=== PATIENT | female | born 1955 | race Caucasian/White ===

== ENCOUNTER → 2017-06-16 | Outpatient (CLI) | payer OTHER ==
[2017-02-24 10:08] VITALS: BMI 18.5
[~2017-06-16] MED LIST: CALC-521 PO; CEFU500T10 PO; CEPH500C24 PO; FAMO20TA28 PO; FURO-45 PO; LEVO-85 PO; LEVO25TA61 PO; LEVO750T27 PO; LIDO5T TP; NITR-105 PO; OXYGENHOME INH; PANT40TA65 PO; PRE5 PO; PRED-1 PO; PRED20TA6 PO; PSYL0.5234 PO; RANI-324 PO; SUCR1ORA13 PO; SUCR1TAB51 PO; [UNRECOGNIZED DRUG - CODE] RC; [UNRECOGNIZED DRUG - CODE] TP
[2017-06-16 15:13] LABS: PLATELET COUNT, AUTOMATED 117 K/uL (150-450)
== END ==
LOC: LAB 13:09
PROVIDERS: ATTEND Internal Medicine
DX: M05.00 Felty's syndrome, unspecified site (principal)
CPT/HCPCS: 36415; 85025

== ENCOUNTER → 2017-07-18 | Outpatient (CLI) | payer OTHER ==
[2017-02-24 10:08] VITALS: BMI 18.5
[~2017-07-18] MED LIST changes: +CYCL10TA29 PO
[2017-07-18 14:01] LABS: PLATELET COUNT, AUTOMATED 125 K/uL (150-450)
== END ==
LOC: LAB 10:39
PROVIDERS: ATTEND Internal Medicine
DX: M05.00 Felty's syndrome, unspecified site (principal)
CPT/HCPCS: 36415; 85025

== ENCOUNTER → 2017-09-19 | Outpatient (CLI) | payer OTHER ==
[2017-02-24 10:08] VITALS: BMI 18.5
[2017-09-19 14:07] LABS: PLATELET COUNT, AUTOMATED 136 K/uL (150-450)
== END ==
LOC: LAB 13:04
PROVIDERS: ATTEND Internal Medicine
DX: M05.00 Felty's syndrome, unspecified site (principal)
CPT/HCPCS: 36415; 85025

== ENCOUNTER → 2017-10-24 | Outpatient (CLI) | payer OTHER ==
[2017-02-24 10:08] VITALS: BMI 18.5
[~2017-10-24] MED LIST changes: -RANI-324 PO; +RANI-366 PO
[2017-10-24 14:28] LABS: PLATELET COUNT, AUTOMATED 80 K/uL (150-450)
== END ==
LOC: LAB 13:38
PROVIDERS: ATTEND Internal Medicine
DX: M05.00 Felty's syndrome, unspecified site (principal)
CPT/HCPCS: 36415; 85025

== ENCOUNTER → 2017-11-28 | Outpatient (CLI) | payer OTHER ==
[2017-02-24 10:08] VITALS: BMI 18.5
[~2017-11-28] MED LIST changes: +ACET500T68 PO; +LIDO15CR8 TOP
[2017-11-28 15:05] LABS: PLATELET COUNT, AUTOMATED 104 K/uL (150-450)
== END ==
LOC: LAB 13:31
PROVIDERS: ATTEND Internal Medicine
DX: M05.00 Felty's syndrome, unspecified site (principal)
CPT/HCPCS: 36415; 85025

== ENCOUNTER 2017-12-25 03:38 | Emergency (ER) | payer OTHER ==
[2017-02-24 10:08] VITALS: Wt 56.8 kg
[~2017-12-25 03:38] MED LIST changes: -CEPH500T7 PO; -TRAM-420 PO
[2017-12-25 03:40] VITALS: BP 105/61
--- NOTE | 2017-12-25 03:40 | ER Report ---
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 Patient was seen by primary care 1 month ago. Approximately with increasing back pain. She is being managed on Tylenol 1000 mg by mouth twice a day and lidocaine patches. She states her pain is not improved. Her pain is worse. She is unable to sleep tonight. Her called 911 and had her brought to the hospital for further evaluation and treatment of her back pain. Patient denies fever, chills , productive cough or shortness of breath. Patient uses a bedpan 4 times a day. She is cared for by MANAGER CREATIVE for several hours during the daytime and then again at bedtime. Patient denies dysuria, frequency or hematuria. Patient was noted to have a decubitus in her left buttock area on her last internal medicine visit. Patient's also taking cyclobenzaprine muscle relaxant, which is not been helping any with the muscle spasms in her back. REVIEW OF SYSTEMS: Respiratory: No cough, no dyspnea. Cardiovascular: No chest pain, no palpitations. Gastrointestinal: No vomiting, no abdominal pain. Musculoskeletal: As above Allergies: Coded Allergies: Methotrexate Analogues (Unverified Allergy, Severe, blisters, 12/25/17) hydroxychloroquine (Unverified Allergy, Unknown, 12/25/17) Uncoded Allergies: DAIRY (Adverse Reaction, Intermediate, 07/19/15) Home Meds Active Scripts Tramadol Hcl (TRAMADOL HCL) 50 Mg Tablet, 1 TAB PO Q6H Y for PAIN, #20 MG TAKE ONE TABLETS BY MOUTH EVERY SIX HOURS NEEDED Prov:ANDREEA DU DO 12/25/17 Cephalexin 500 Mg Tab (KEFLEX 500 MG TAB) 500 Mg Tablet, 500 MG PO TID for infection, #21 TAB Prov:ANDREEA DU DO 12/25/17 Lidocaine (Lidocaine) 5 % Cream..g., 1 LUCILLE TOP BID Y for pain, #1 TUBE 5 Refills Prov:TAVON HAMMOND MD 12/14/17 Cyclobenzaprine Hcl (CYCLOBENZAPRINE HCL) 10 Mg Tablet, 1 TAB PO TID Y for muscle spasm, #15 TAB 0 Refills Prov:TIARRA CABALLERO DNP, MOLDED RUBBER GOODS CUTTER-BC 11/03/17 Prednisone 10 Mg Tab (PREDNISONE 10 MG TAB) 10 Mg Tablet, 1 TAB PO TID, #120 TAB 5 Refills Prov:TAVON HAMMOND MD 10/27/17 Furosemide (FUROSEMIDE) 20 Mg Tablet, 0.5 TAB PO DAILY, #45 TAB 3 Refills Prov:TAVON HAMMOND MD 09/21/17 Pantoprazole Sodium (PANTOPRAZOLE SODIUM) 40 Mg Tablet.dr, 1 TAB PO QHS, #90 TAB 4 Refills Prov:TAVON HAMMOND MD 04/19/17 Levothyroxine Sodium (LEVOTHYROXINE SODIUM) 25 Mcg Tablet, 1 TAB PO QDAY, #90 TAB 3 Refills Prov:TAVON HAMMOND MD 03/29/17 Reported Medications Acetaminophen (TYLENOL EXTRA STRENGTH) 500 Mg Tablet, 2 TAB PO BID 2 tabs po bid routinely, and may add third dose prn pain 11/27/17 Oxygen (OXYGEN) Inha, 2 L INH cont, L 03/07/17 Glycerin (SUPPOSITORY) 1 Each Supp.rect, 1 SUPP.RECT RC DAILY Y for constipation , SUPP.RECT 07/19/15 Calcium Carbonate (TUMS) 300 Mg Tab.chew, 2 TAB PO BID Y for INDIGESTION, TAB.CHEW 07/19/15 Reviewed Nurses Notes: Yes Old Medical Records Reviewed: Yes Hx Smoking: No Smoking Status: Never Smoker Exposure to Second Hand Smoke?: No Hx Substance Use Disorder: No Hx Alcohol Use: No Constitutional Vital Sign - Last 24 Hours 12/25/17 12/25/17 12/25/17 12/25/17 03:39 03:40 03:53 04:23 Temp 98.2 Pulse 113 109 107 Resp 16 B/P (MAP) 105/61 (76) 105/61 Pulse Ox 85 100 92 O2 Delivery Room Air 12/25/17 12/25/17 12/25/17 12/25/17 04:38 04:43 05:13 05:28 Pulse 109 111 96 103 Pulse Ox 94 92 95 97 12/25/17 12/25/17 12/25/17 05:43 05:48 06:03 Pulse 101 96 98 Pulse Ox 98 96 94 Physical Exam General Appearance: The patient is alert, has no immediate need for airway protection and no current signs of toxicity. Vital signs stable, afebrile HEENT Pupils equal and round no injection. Oropharynx with dry mucous membranes Respiratory: Chest is non tender, lungs are clear to auscultation. Cardiac: regular rate and rhythm Gastrointestinal: Abdomen is soft and non tender, no masses, bowel sounds normal. Musculoskeletal: Neck: Neck is supple and non tender. Back is tender to the midthoracic region, mostly paraspinous muscles, Extremities have full range of motion and are non tender. Skin: No rashes or lesions. DIFFERENTIAL DIAGNOSIS: After history and physical exam differential diagnosis was considered for back pain including but not limited to muscular pain, herniated disc, spine fracture, intra-abdominal causes, arthritis and urinary tract infection. Medical Decision Making Data Points Laboratory Hematology Test 12/25/17 05:31 Urine Color Yellow Urine Clarity Cloudy Urine pH 5.0 pH (4.8-9.5) Urine Specific [place] 1.024 Urine Protein Negative mg/dL (NEGATIVE) Urine Glucose (UA) Negative mg/dL (NEGATIVE) Urine Ketones Trace mg/dL (NEGATIVE) Urine Blood Negative (NEGATIVE) Urine Nitrite Negative (NEGATIVE) Urine Bilirubin Negative (NEGATIVE) Urine Urobilinogen Negative mg/dL (0.2-1.9) Urine Leukocyte Esterase Large (NEGATIVE) Urine RBC 10 /HPF (0-2/HPF) Urine WBC 87 /HPF (0-5/HPF) Urine WBC Clumps Many /HPF Urine Squamous Epithelial Cells Many /LPF (NONE-FEW) Urine Transitional Epithelial Cells Many /LPF (NONE-FEW) Urine Bacteria Moderate /HPF (NONE-FEW) Urine Hyaline Casts Few /LPF (NONE-FEW) Urine Mucus Few /HPF (NONE-FEW) Chemistry Test 12/25/17 05:31 Urine Color Yellow Urine Clarity Cloudy Urine pH 5.0 pH (4.8-9.5) Urine Specific [place] 1.024 Urine Protein Negative mg/dL (NEGATIVE) Urine Glucose (UA) Negative mg/dL (NEGATIVE) Urine Ketones Trace mg/dL (NEGATIVE) Urine Blood Negative (NEGATIVE) Urine Nitrite Negative (NEGATIVE) Urine Bilirubin Negative (NEGATIVE) Urine Urobilinogen Negative mg/dL (0.2-1.9) Urine Leukocyte Esterase Large (NEGATIVE) Urine RBC 10 /HPF (0-2/HPF) Urine WBC 87 /HPF (0-5/HPF) Urine WBC Clumps Many /HPF Urine Squamous Epithelial Cells Many /LPF (NONE-FEW) Urine Transitional Epithelial Cells Many /LPF (NONE-FEW) Urine Bacteria Moderate /HPF (NONE-FEW) Urine Hyaline Casts Few /LPF (NONE-FEW) Urine Mucus Few /HPF (NONE-FEW) Urinalysis Test 12/25/17 05:31 Urine Color Yellow Urine Clarity Cloudy Urine pH 5.0 pH (4.8-9.5) Urine Specific [place] 1.024 Urine Protein Negative mg/dL (NEGATIVE) Urine Glucose (UA) Negative mg/dL (NEGATIVE) Urine Ketones Trace mg/dL (NEGATIVE) Urine Blood Negative (NEGATIVE) Urine Nitrite Negative (NEGATIVE) Urine Bilirubin Negative (NEGATIVE) Urine Urobilinogen Negative mg/dL (0.2-1.9) Urine Leukocyte Esterase Large (NEGATIVE) Urine RBC 10 /HPF (0-2/HPF) Urine WBC 87 /HPF (0-5/HPF) Urine WBC Clumps Many /HPF Urine Squamous Epithelial Cells Many /LPF (NONE-FEW) Urine Transitional Epithelial Cells Many /LPF (NONE-FEW) Urine Bacteria Moderate /HPF (NONE-FEW) Urine Hyaline Casts Few /LPF (NONE-FEW) Urine Mucus Few /HPF (NONE-FEW) ED Course/Re-evaluation ED Course Patient was admitted to an examination room. H&P was done. The differential diagnosis was considered. On clinical examination. Patient has back pain. There is pain in the mid to lower thoracic region. There is no CVA tenderness. Diagnostic evaluation is ordered. Nurses are unable to establish a peripheral IV. A blood draw was unsuccessful by numerous staff members. We will check a urinalysis to rule out infection. Patient's back pain will be treated with oral hydrocodone syrup. Patient reports good improvement of her pain with 2.5 mg of hydrocodone Tramadol would be another consideration. Prescription for tramadol provided. She'll be covered with Keflex for urinary tract infection. A urine cultures ordered. Patient needs to follow-up with her primary care provider pain management program. Decision to Disposition Date: Dec 25, 2017 Decision to Disposition Time: 05:28 Depart Departure Latest Vital Signs Vital Signs Date Time Temp Pulse Resp B/P (MAP) Pulse Ox O2 Delivery O2 Flow Rate FiO2 12/25/17 06:03 98 94 12/25/17 03:40 98.2 16 105/61 Room Air Impression: Primary Impression: Bilateral thoracic back pain Additional Impressions: Felty's syndrome Rheumatoid arthritis UTI (urinary tract infection) Condition: Improved Disposition: HOME OR SELF-CARE Referrals: TAVON HAMMOND MD (PCP) New Scripts Tramadol Hcl (TRAMADOL HCL) 50 Mg Tablet 1 TAB PO Q6H Y for PAIN, #20 MG TAKE ONE TABLETS BY MOUTH EVERY SIX HOURS NEEDED Prov: ANDREEA DU DO 12/25/17 Cephalexin 500 Mg Tab (KEFLEX 500 MG TAB) 500 Mg Tablet 500 MG PO TID for infection, #21 TAB Prov: ANDREEA DU DO 12/25/17 Patient Instructions: Urinary Tract Infection in Women (ED) Additional Instructions: Follow-up with your primary care in 3-5 days for reevaluation of urinary tract infection and adequacy of pain management Problem Qualifiers Primary Impression: Bilateral thoracic back pain Chronicity: chronic Qualified Codes: M54.6 - Pain in thoracic spine; G89.29 - Other chronic pain Additional Impressions: Rheumatoid arthritis Rheumatoid arthritis location: unspecified site Rheumatoid factor presence: with rheumatoid factor Qualified Codes: M05.9 - Rheumatoid arthritis with rheumatoid factor, unspecified UTI (urinary tract infection) Urinary tract infection type: acute cystitis Hematuria presence: without hematuria Qualified Codes: N30.00 - Acute cystitis without hematuria ANDREEA DU DO Dec 25, 2017 03:39
[2017-12-25] MEDS ORDERED: NS(*) 0.9% 1000 ML BAG 1,000 ML IV ONE (03:48)
[2017-12-25] MEDS ORDERED: fentaNYL CITR 100 MCG/2 ML AMP IVP ONE (03:50)
[2017-12-25] MEDS ORDERED: ONDANSETRON 4 MG/2 ML VIAL IVP ONE (03:50)
[2017-12-25] MEDS ORDERED: HYDROCOD/ACETAMIN 2.5-108/5 ML 5 ML UDC PO ONE (04:20)
[2017-12-25] MEDS ORDERED: CEPHALEXIN MONO 500 MG CAP PO ONE (05:50)
[2017-12-25] MEDS ORDERED: CEPH500T7 PO (05:59)
[2017-12-25] MEDS ORDERED: TRAM-420 PO (05:59)
== END 2017-12-25 06:25 | disposition home or self-care (01) ==
LOC: ER 03:41
DX: N30.00 Acute cystitis without hematuria (principal); M54.6 Pain in thoracic spine; M05.00 Felty's syndrome, unspecified site; G89.29 Other chronic pain; M06.9 Rheumatoid arthritis, unspecified
CPT/HCPCS: 81001; 87077; 87088; 87186; 99283

== ENCOUNTER → 2017-12-25 | Outpatient (CLI) | payer OTHER ==
[2017-02-24 10:08] VITALS: BMI 18.5
[~2017-12-25] MED LIST changes: +CEPH500T7 PO; +TRAM-420 PO
== END ==
LOC: AMB 06:13
PROVIDERS: ATTEND Nurse Practitioner
DX: M62.830 Muscle spasm of back (principal)
CPT/HCPCS: A0425; A0428

== ENCOUNTER → 2017-12-25 | Outpatient (CLI) | payer OTHER ==
[2017-02-24 10:08] VITALS: BMI 18.5
== END ==
LOC: AMB 03:19
PROVIDERS: ATTEND Nurse Practitioner
DX: M54.9 Dorsalgia, unspecified (principal); R25.2 Cramp and spasm; M62.830 Muscle spasm of back; G83.89 Other specified paralytic syndromes
CPT/HCPCS: A0425; A0429

== ENCOUNTER 2017-12-29 16:53 | Emergency (ER) | payer OTHER ==
[2017-02-24 10:08] VITALS: Wt 54.4 kg
[~2017-12-29 16:53] MED LIST changes: -LORA-1455 PO; -MORP100S32 PO
--- NOTE | 2017-12-29 17:10 | ER Report ---
History and Physical Time Seen By MD: 17:00 Allergies: Coded Allergies: Methotrexate Analogues (Unverified Allergy, Severe, blisters, 12/25/17) hydroxychloroquine (Unverified Allergy, Unknown, 12/25/17) Uncoded Allergies: DAIRY (Adverse Reaction, Intermediate, 07/19/15) Home Meds Active Scripts Tramadol Hcl (TRAMADOL HCL) 50 Mg Tablet, 1 TAB PO Q6H Y for PAIN, #20 MG TAKE ONE TABLETS BY MOUTH EVERY SIX HOURS NEEDED Prov:ANDREEA DU DO 12/25/17 Cephalexin 500 Mg Tab (KEFLEX 500 MG TAB) 500 Mg Tablet, 500 MG PO TID for infection, #21 TAB Prov:ANDREEA DU DO 12/25/17 Lidocaine (Lidocaine) 5 % Cream..g., 1 LUCILLE TOP BID Y for pain, #1 TUBE 5 Refills Prov:TAVON HAMMOND MD 12/14/17 Cyclobenzaprine Hcl (CYCLOBENZAPRINE HCL) 10 Mg Tablet, 1 TAB PO TID Y for muscle spasm, #15 TAB 0 Refills Prov:TIARRA CABALLERO DNP, SOFTWARE RELEASE ENGINEER-BC 11/03/17 Prednisone 10 Mg Tab (PREDNISONE 10 MG TAB) 10 Mg Tablet, 1 TAB PO TID, #120 TAB 5 Refills Prov:TAVON HAMMOND MD 10/27/17 Furosemide (FUROSEMIDE) 20 Mg Tablet, 0.5 TAB PO DAILY, #45 TAB 3 Refills Prov:TAVON HAMMOND MD 09/21/17 Pantoprazole Sodium (PANTOPRAZOLE SODIUM) 40 Mg Tablet.dr, 1 TAB PO QHS, #90 TAB 4 Refills Prov:TAVON HAMMOND MD 04/19/17 Levothyroxine Sodium (LEVOTHYROXINE SODIUM) 25 Mcg Tablet, 1 TAB PO QDAY, #90 TAB 3 Refills Prov:TAVON HAMMOND MD 03/29/17 Reported Medications Acetaminophen (TYLENOL EXTRA STRENGTH) 500 Mg Tablet, 2 TAB PO BID 2 tabs po bid routinely, and may add third dose prn pain 11/27/17 Oxygen (OXYGEN) Inha, 2 L INH cont, L 03/07/17 Glycerin (SUPPOSITORY) 1 Each Supp.rect, 1 SUPP.RECT RC DAILY Y for constipation , SUPP.RECT 07/19/15 Calcium Carbonate (TUMS) 300 Mg Tab.chew, 2 TAB PO BID Y for INDIGESTION, TAB.CHEW 07/19/15 Hx Smoking: No Smoking Status: Never Smoker Exposure to Second Hand Smoke?: No Hx Substance Use Disorder: No Hx Alcohol Use: No Constitutional Vital Sign - Last 24 Hours 12/29/17 16:57 Temp 97.5 Pulse 111 Resp 24 B/P (MAP) 90/34 Pulse Ox 88 O2 Delivery Nasal Cannula Depart Departure Latest Vital Signs Vital Signs Date Time Temp Pulse Resp B/P (MAP) Pulse Ox O2 Delivery O2 Flow Rate FiO2 12/29/17 16:57 97.5 111 24 90/34 88 Nasal Cannula Referrals: TAVON HAMMOND MD (PCP) RADHA WHITESIDE DO Dec 29, 2017 17:10
--- NOTE | 2017-12-29 17:12 | ER Report ---
History and Physical Time Seen By MD: 17:12 Hx. of Stated Complaint: PATIENTS REPORTS THAT SHE HAS BEEN SHORT OF BREATH TODAY. (RADHA WHITESIDE DO) HPI/ROS CHIEF COMPLAINT: sob HISTORY OF PRESENT ILLNESS: Pt brought in by her for evaluation of sob. PT Is chronically on 2 liters oxygen at home but today had to increase to 4l. pt denies cough or fever. + chills. Pt has chronic thorasic back pain due to compression fxs but no anterior cp. No pain with breathing. Pt is in poor health and is contracted. Pt has hx of pleural effusions as well as ascites which as caused sob in the past. Pt does not want aggressive procedures, no central lines, intubation or cpr. Pt also refusing cxr due to the pain of laying on the board. pt also has hx of poor IV ascess and is still refusing central line dispite low blood pressure on arrival. REVIEW OF SYSTEMS: Constitutional: No fever, + chills. Eyes: No discharge. ENT: No sore throat. Cardiovascular: No chest pain, no palpitations. Respiratory: No cough, + shortness of breath. Gastrointestinal: No abdominal pain, no vomiting. Genitourinary: No hematuria. Musculoskeletal: + back pain. Skin: + rashes/skin break down on back as well as legs. Neurological: No headache. (RADHA WHITESIDE DO) Allergies: Coded Allergies: Methotrexate Analogues (Unverified Allergy, Severe, blisters, 12/25/17) hydroxychloroquine (Unverified Allergy, Unknown, 12/25/17) Uncoded Allergies: DAIRY (Adverse Reaction, Intermediate, 07/19/15) Home Meds Active Scripts Tramadol Hcl (TRAMADOL HCL) 50 Mg Tablet, 1 TAB PO Q6H Y for PAIN, #20 MG TAKE ONE TABLETS BY MOUTH EVERY SIX HOURS NEEDED Prov:ANDREEA DU DO 12/25/17 Cephalexin 500 Mg Tab (KEFLEX 500 MG TAB) 500 Mg Tablet, 500 MG PO TID for infection, #21 TAB Prov:ANDREEA DU DO 12/25/17 Lidocaine (Lidocaine) 5 % Cream..g., 1 LUCILLE TOP BID Y for pain, #1 TUBE 5 Refills Prov:TAVON HAMMOND MD 12/14/17 Cyclobenzaprine Hcl (CYCLOBENZAPRINE HCL) 10 Mg Tablet, 1 TAB PO TID Y for muscle spasm, #15 TAB 0 Refills Prov:TIARRA CABALLERO DNP, GEOGRAPHIC INFORMATION SYSTEM SURVEYOR-BC 11/03/17 Prednisone 10 Mg Tab (PREDNISONE 10 MG TAB) 10 Mg Tablet, 1 TAB PO TID, #120 TAB 5 Refills Prov:TAVON HAMMOND MD 10/27/17 Furosemide (FUROSEMIDE) 20 Mg Tablet, 0.5 TAB PO DAILY, #45 TAB 3 Refills Prov:TAVON HAMMOND MD 09/21/17 Pantoprazole Sodium (PANTOPRAZOLE SODIUM) 40 Mg Tablet.dr, 1 TAB PO QHS, #90 TAB 4 Refills Prov:TAVON HAMMOND MD 04/19/17 Levothyroxine Sodium (LEVOTHYROXINE SODIUM) 25 Mcg Tablet, 1 TAB PO QDAY, #90 TAB 3 Refills Prov:TAVON HAMMOND MD 03/29/17 Reported Medications Acetaminophen (TYLENOL EXTRA STRENGTH) 500 Mg Tablet, 2 TAB PO BID 2 tabs po bid routinely, and may add third dose prn pain 11/27/17 Oxygen (OXYGEN) Inha, 2 L INH cont, L 03/07/17 Glycerin (SUPPOSITORY) 1 Each Supp.rect, 1 SUPP.RECT RC DAILY Y for constipation , SUPP.RECT 07/19/15 Calcium Carbonate (TUMS) 300 Mg Tab.chew, 2 TAB PO BID Y for INDIGESTION, TAB.CHEW 07/19/15 Past Medical/Surgical History pmhx: pleural effusions, gi bleed, RA, felty's syndrome, ascites, compression fx thorasic spine Pshx: non contrib (LAURORA,RADHA V DO) Hx Smoking: No Smoking Status: Never Smoker Exposure to Second Hand Smoke?: No Hx Substance Use Disorder: No Hx Alcohol Use: No (LAURORA,RADHA V DO) Constitutional Vital Sign - Last 24 Hours 12/29/17 12/29/17 12/29/17 12/29/17 16:57 16:57 17:00 17:07 Temp 97.5 Pulse 111 Resp 24 B/P (MAP) 90/34 (52) 90/34 77/49 (58) 81/34 (50) Pulse Ox 88 O2 Delivery Nasal Cannula 12/29/17 12/29/17 12/29/17 12/29/17 17:08 17:28 17:30 17:38 Pulse 111 116 Resp 18 B/P (MAP) 86/43 (57) 84/21 (42) Pulse Ox 99 98 12/29/17 12/29/17 12/29/17 12/29/17 17:43 17:53 18:00 18:05 Pulse 107 108 B/P (MAP) 79/40 (53) 83/55 (64) Pulse Ox 99 98 12/29/17 12/29/17 12/29/17 12/29/17 18:20 18:30 18:35 18:50 Pulse 108 110 B/P (MAP) 87/50 (62) Pulse Ox 99 100 97 (ANDREEA DU DO) Physical Exam General Appearance: The patient is alert, has no immediate need for airway protection and no signs of toxicity. Eyes: Pupils equal and round no pallor or injection, EOMI ENT: no pharyngeal erythema or exudates, Mucous membranes are moist Respiratory: There are no retractions, lungs are clear to auscultation anteriorly however pt is lying flat and I am unable to reach underneath per pts husbands request due to pain. Cardiovascular: + tachy. pulses are equal and symmetrical Gastrointestinal: Abdomen is soft and non tender, no masses, bowel sounds normal, no guarding, no rigidity or rebound, + ascites Neurological: Cranial nerves II-XII grossly intact, no sensory or motor loss Skin: Warm and dry, no rashes. Musculoskeletal: Neck is supple non tender, unable to evaluate back due to pt refusing to turn over. Extremities are diffusely tender and both arms and legs are contracted, , + diffuse swelling to hands DIFFERENTIAL DIAGNOSIS: After history and physical exam differential diagnosis was considered for ascites, pleural effusion, pneumonia, PE, malnutrition (RADHA WHITESIDE V DO) Medical Decision Making EKG/Imaging EKG Interpretation limited ekg due to pts position. no acute st elevation is noted. suspect sinus tach @ 110 Pt with lateral infaction noted but when compared to prior in was seen at that time as well. (RADHA WHITESIDE V DO) Imaging Results: CT scan of the chest, abdomen, pelvis was obtained. The results of the study are COMPUTED TOMOGRAPHY OF THE CHEST, ABDOMEN, AND PELVIS without CONTRAST DATE OF EXAM: 12/29/2017. INDICATION: Shortness of breath. Hypotension. sob/hypotensive/weakness. . TECHNIQUE: Contiguous axial CT images were obtained through the chest, abdomen, and pelvis without contrast. Coronal and sagittal reformatted images were submitted. COMPARISON: CT chest February 25, 2017. FINDINGS: Thyroid: The left lobe of the thyroid is nodular and enlarged similar to prior imaging. Thoracic inlet: No adenopathy. Heart and great vessels: Heart size is normal. Blood pool density appears decreased suggesting anemia. Mediastinum and alma rosa: There is no discrete hilar adenopathy. Lungs and pleura: The right-sided pleural effusion is large but somewhat decreased in volume from the comparison of February 25, 2017. Most of the lower lobe is atelectatic. The right upper lobe is also partially atelectatic. The left-sided pleural effusion is small to moderate in volume but has increased since the comparison. It has a loculated component along the fissure and at the apex. The loculated component at the left apex has increased from the comparison, and much of the upper lobe is atelectatic. There is also marked atelectasis in the left lower lobe. Breast and axilla: Breast tissue is grossly unremarkable by CT but incompletely imaged. Liver and hepatic vasculature: The liver is shrunken with a nodular appearance , and there is a large volume of intra-abdominal ascites. The ascites measures low density, and a discrete hematoma is not identified. Gallbladder and bile ducts: The gallbladder is not well imaged. Motion blur precludes detailed evaluation. Spleen: Grossly normal. Pancreas: Grossly unremarkable. Adrenals: Normal Kidneys, ureters and bladder: Both kidneys are atrophic. The bladder is unremarkable and suspended within the ascites. Retroperitoneum and aorta: Normal caliber aorta with scattered atherosclerosis. GI tract, mesentery and peritoneum: The colonic wall appears thickened suggestive of hepatic colopathy. There are scattered colonic diverticula. The esophagus and stomach at the GE junction appear markedly edematous and irregular. The finding is likely chronic. No bowel obstruction. No free air. Uterus and adnexa: The unremarkable uterus is suspended within the ascites. Bones and soft tissues: Bone density is diffusely decreased. 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 There are multilevel degenerative findings in the spine. Severe glenohumeral degenerative findings. Severe thoracic kyphosis and exaggerated lumbar lordosis. IMPRESSION: 1. Large right-sided pleural effusion with extensive atelectasis. 2. Moderate sized left pleural effusion has increased in volume since February 25, 2017 with loculations at the left apex and along the fissure. Atelectasis is extensive. 3. Cirrhotic appearing liver with large volume ascites. 4. Thickening of the colonic wall is probably a result of hepatic colopathy but is nonspecific. 5. Irregularity and thickening of the downstream esophagus at the GE junction as well as the stomach could represent an underlying lesion. Correlate with history and endoscopy. 6. Blood pool attenuation appears decreased suggesting anemia. 7. Enlargement of the left thyroid lobe with a nodular appearance is similar to prior imaging. 8. Additional chronic findings as above. The study was read by the radiologist. I viewed the images myself on the PACS system. (ANDREEA DU DO) ED Course/Re-evaluation ED Course 12/29/2017 5:28:04 pm Spoke to pt and and was told she is DNR/DNI. Pt does appear malnurited and third spacing fluid. Pt has received albumin in the past to help after her paracentesis. will attempt a peripheral line. ALthought prior visits lines have been unsuccessful or in her legs only. 12/29/2017 5:30:43 pm PT and her are refusing all blood work as well a IV ascess when nursing went in to make an attempt. 12/29/2017 5:39:54 pm Went in and spoke with ,he is okay with us attempting an IV but he states "they tried it monday and were unable to get ascess or blood". Pts blood pressure currently is very low and I would like to see were her labs are placed and to give her fluid/albumin. PT states that we can try peripheral ascess but does not want her to be a pin cushion. 12/29/2017 6:03:07 pm Unable to get blood. Family refusing repeat blood draws for labs. Discussed with possible hospice. He states that is something that they have not discussed. I spent 15 minutes speaking with the patitient and and it is not something he can decide today. Discussed having him talk to Dr. mckeon. (RADHA WHITESIDE DO) ED Course Care was assumed at shift change. Patient was receiving an infusion of albumin to hopefully increase her intravascular pressure. She was discharged home in the care of her advised to follow-up with primary care for consideration for hospice Decision to Disposition Date: Dec 29, 2017 Decision to Disposition Time: 18:53 (ANDREEA DU DO) Depart Departure Latest Vital Signs Vital Signs Date Time Temp Pulse Resp B/P (MAP) Pulse Ox O2 Delivery O2 Flow Rate FiO2 12/29/17 18:50 110 97 12/29/17 18:30 87/50 (62) 12/29/17 17:08 18 12/29/17 16:57 97.5 Nasal Cannula (ANDREEA DU DO) Impression: Primary Impression: Bilateral pleural effusion Additional Impressions: Ascites Feltys syndrome Urinary tract infection Condition: Improved Disposition: HOME OR SELF-CARE Referrals: TAVON HAMMOND MD (PCP) Patient Instructions: Pleural Effusion (ED) Additional Instructions: Follow-up with Dr. Ferrari early next week Problem Qualifiers Additional Impressions: Ascites Ascites type: other type Qualified Codes: R18.8 - Other ascites Urinary tract infection Urinary tract infection type: acute cystitis Hematuria presence: without hematuria Qualified Codes: N30.00 - Acute cystitis without hematuria RADHA WHITESIDE DO Dec 29, 2017 17:12 ANDREEA DU DO Dec 29, 2017 18:59
[2017-12-29] MEDS ORDERED: ALBUMIN HUMAN 25% 50 ML VIAL IVPB ONE (17:45)
--- NOTE | 2017-12-29 18:08 | RADIOLOGY IMAGING REPORT ---
FACILITY: [facility] - [place] PATIENT NAME: Drea Mcdonald : 1955 MR: [id number] V: [id number] EXAM DATE: ORDERING PHYSICIAN: RADHA WHITESIDE TECHNOLOGIST: [place] [facility] [place] Drea Mcd[place] : 1955 Visit/Account:[id number] Date of Sevice: 12/29/2017 COMPUTED TOMOGRAPHY OF THE CHEST, ABDOMEN, AND PELVIS without CONTRAST DATE OF EXAM: 12/29/2017. INDICATION: Shortness of breath. Hypotension. sob/hypotensive/weakness. . TECHNIQUE: Contiguous axial CT images were obtained through the chest, abdomen, and pelvis without c ontrast. Coronal and sagittal reformatted images were submitted. COMPARISON: CT chest February 25, 2017. FINDINGS: Thyroid: The left lobe of the thyroid is nodular and enlarged similar to prior imaging. Thoracic inlet: No adenopathy. Heart and great vessels: Heart size is normal. Blood pool density appears decreased suggesting anemi a. Mediastinum and alma rosa: There is no discrete hilar adenopathy. Lungs and pleura: The right-sided pleural effusion is large but somewhat decreased in volume from th e comparison of February 25, 2017. Most of the lower lobe is atelectatic. The right upper lobe is al so partially atelectatic. The left-sided pleural effusion is small to moderate in volume but has incr eased since the comparison. It has a loculated component along the fissure and at the apex. The locul ated component at the left apex has increased from the comparison, and much of the upper lobe is atel ectatic. There is also marked atelectasis in the left lower lobe. Breast and axilla: Breast tissue is grossly unremarkable by CT but incompletely imaged. Liver and hepatic vasculature: The liver is shrunken with a nodular appearance, and there is a large volume of intra-abdominal ascites. The ascites measures low density, and a discrete hematoma is not identified. Gallbladder and bile ducts: The gallbladder is not well imaged. Motion blur precludes detailed evalu ation. Spleen: Grossly normal. Pancreas: Grossly unremarkable. Adrenals: Normal Kidneys, ureters and bladder: Both kidneys are atrophic. The bladder is unremarkable and suspended w ithin the ascites. Retroperitoneum and aorta: Normal caliber aorta with scattered atherosclerosis. GI tract, mesentery and peritoneum: The colonic wall appears thickened suggestive of hepatic colopath y. There are scattered colonic diverticula. The esophagus and stomach at the GE junction appear marke dly edematous and irregular. The finding is likely chronic. No bowel obstruction. No free air. Uterus and adnexa: The unremarkable uterus is suspended within the ascites. Bones and soft tissues: Bone density is diffusely decreased. 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 There are multilevel degenerative findings in the spine. Severe glenohumeral de generative findings. Severe thoracic kyphosis and exaggerated lumbar lordosis. IMPRESSION: 1. Large right-sided pleural effusion with extensive atelectasis. 2. Moderate sized left pleural effusion has increased in volume since February 25, 2017 with loculat ions at the left apex and along the fissure. Atelectasis is extensive. 3. Cirrhotic appearing liver with large volume ascites. 4. Thickening of the colonic wall is probably a result of hepatic colopathy but is nonspecific. 5. Irregularity and thickening of the downstream esophagus at the GE junction as well as the stomach could represent an underlying lesion. Correlate with history and endoscopy. 6. Blood pool attenuation appears decreased suggesting anemia. 7. Enlargement of the left thyroid lobe with a nodular appearance is similar to prior imaging. 8. Additional chronic findings as above. One of the following dose optimization techniques was utilized in the performance of this exam: Autom ated exposure control; adjustment of the mA and/or kV according to the patient's size; or use of an i terative reconstruction technique. Specific details can be refere chrissy in the facility's radiology C T exam operational policy. Report Dictated By: Santosh Dick MD at 12/29/2017 5:43 PM Report E-Signed By: Santosh Dick MD at 12/29/2017 6:03 PM [id number]
[2017-12-29 18:30] VITALS: BP 87/50
--- NOTE | 2017-12-29 18:34 | EKG ---
FACILITY: [facility] PATIENT NAME: AYSHA HUANG : [id number] MR: [id number] V: [id number] EXAM DATE: ORDERING PHYSICIAN: RADHA WHITESIDE TECHNOLOGIST: Test Reason : Blood Pressure : / mmHG Vent. Rate : 116 BPM Atrial Rate : 113 BPM P-R Int : 000 ms QRS Dur : 072 ms QT Int : 348 ms P-R-T Axes : 000 106 036 degrees QTc Int : 483 ms Wavy baseline makes interpretation difficult Rhythm appears to be sinus tachycardia Lateral infarct (cited on or before 29-MAY-2016) Abnormal ECG Confirmed by DU ZEPEDA ([id number]) on 12/29/2017 9:12:57 PM Referred By: Confirmed By:DU ZEPEDA
[2018-01-03] MEDS ORDERED: TRAM-420 PO (16:44)
[2018-01-03] MEDS ORDERED: LORA-1455 PO (16:44)
[2018-01-05] MEDS ORDERED: MORP100S32 PO ×2 (11:25→13:20)
[2018-01-07] MEDS ORDERED: PRED-1 PO (19:40)
== END 2017-12-29 19:13 | disposition home or self-care (01) ==
LOC: ER 17:07
DX: J90 Pleural effusion, not elsewhere classified (principal); R18.8 Other ascites; N30.00 Acute cystitis without hematuria; M05.00 Felty's syndrome, unspecified site
CPT/HCPCS: 71250; 74176; 93005; 99284; P9047

== ENCOUNTER → 2017-12-29 | Outpatient (CLI) | payer OTHER ==
[2017-02-24 10:08] VITALS: BMI 18.5
[~2017-12-29] MED LIST changes: +CEPH500T7 PO; +LORA-1455 PO; +MORP100S32 PO; +TRAM-420 PO
== END ==
LOC: AMB 19:06
PROVIDERS: ATTEND Nurse Practitioner
DX: R27.0 Ataxia, unspecified (principal)
CPT/HCPCS: A0425; A0429

== ENCOUNTER → 2017-12-29 | Outpatient (CLI) | payer OTHER ==
[2017-02-24 10:08] VITALS: BMI 18.5
== END ==
LOC: AMB 16:41
PROVIDERS: ATTEND Nurse Practitioner
DX: R06.00 Dyspnea, unspecified (principal)
CPT/HCPCS: A0425; A0427

== ENCOUNTER → 2018-01-02 | Outpatient (CLI) | payer OTHER ==
[2017-02-24 10:08] VITALS: BMI 18.5
[~2018-01-02] MED LIST changes: +LORA-1455 PO
== END ==
LOC: LAB 14:06
PROVIDERS: ATTEND Internal Medicine
DX: M05.00 Felty's syndrome, unspecified site (principal)